=== PATIENT | female | born 1995 | race Caucasian/White ===

== ENCOUNTER 2024-02-09 12:22 | Emergency (ER) | payer OTHER ==
[~2024-02-09] VITALS: Ht 152.4 cm; Wt 83.9 kg
[2024-02-09 12:47] VITALS: PULSE 74; RESP 15; TEMP 98.3; O2SAT 100
== END 2024-02-09 14:43 | disposition home or self-care (01) ==
LOC: ER 12:30
DX: R06.00 Dyspnea, unspecified (principal); U07.1 COVID-19; R51.9 Headache, unspecified; R11.0 Nausea; R53.81 Other malaise
CPT/HCPCS: 71046; 87400; 93005; 99284; U0002